=== PATIENT | female | born 1990 | race Caucasian/White ===

== ENCOUNTER 2024-07-05 15:31 | Emergency (ER) | payer OTHER, SELFPAY ==
--- NOTE | ~2024-07-05 | XR_ITS ---
HISTORY: fall COMPARISON: None TECHNIQUE: 2 views of the tibia and fibula were performed FINDINGS: No acute or subacute fracture. Joint spaces are preserved and alignment is maintained. Soft tissues are unremarkable without foreign body or significant calcification. Age-appropriate mineralization. IMPRESSION: No acute fracture or dislocation. Reviewed, dictated and finalized at location A.
--- NOTE | ~2024-07-05 | XR_ITS ---
HISTORY: fall COMPARISON: None TECHNIQUE: 4 views of the left knee were performed. FINDINGS: No acute or subacute fracture, erosion, lytic or sclerotic lesion. Medial tibiofemoral joint space narrowing is identified. No suprapatellar joint effusion is identified. The infrapatellar joint space is clear. IMPRESSION: Trace degenerative disease without acute fracture. Reviewed, dictated and finalized at location A.
--- NOTE | ~2024-07-05 | XR_ITS ---
HISTORY: fall COMPARISON: None TECHNIQUE: 3 views of the left hand were performed. FINDINGS: No acute fracture is identified. The joint spaces are preserved. The carpal arcs are intact. Mild radiocarpal joint space narrowing with sclerosis of the distal radius is present. Bone mineralization is age-appropriate. No significant soft tissue swelling. No radiopaque foreign body is identified. IMPRESSION: No acute fracture or dislocation within the left hand, as detailed above. Reviewed, dictated and finalized at location A.
[2024-07-05 15:34] VITALS: BP 205/113; PULSE 92; RESP 16; TEMP 36.8; O2SAT 100
--- NOTE | 2024-07-05 15:42 | PC.NURSE ---
Pt. reports history of htn. She states she has not been compliant with consistency taking BP medication in 3 years. She took 1 pill 2 days ago but ran out of medication and needs a refill. Denies CP or htn. Pt. educated on risks of uncontrolled htn.
--- NOTE | 2024-07-05 16:57 | ED.FALL ---
HPI - Fall General Chief Complaint: Fall <Barbie Montejo PA-C - Last Filed: 07/05/24 17:01> Stated Complaint: fall off ladder, L. pinky and L. knee pain <Barbie Montejo PA-C - Last Filed: 07/05/24 17:01> Time Seen by Provider: 07/05/24 17:28 <Barbie Montejo PA-C - Last Filed: 07/05/24 17:01> Focused HPI: 34-year-old female presents to emergency department for injuries after a fall that occurred prior to arrival. Patient states she was at work using a lift when the ladder got kicked off the lift the patient dropped about 5-6 feet to the ground. She landed on her legs and then fell forward onto her abdomen. She states she did not hit her head or lose consciousness. She is not anticoagulated. She is reporting pain and abrasions to the left knee, left tib-fib and left 5th digit to her hand. Reports Tdap is up-to-date. Denies other injuries acquired including neck pain, back pain, chest wall pain, abdominal pain. GENERAL: Well-appearing, well-nourished, and in no acute distress. HEAD: Normocephalic, atraumatic. CHEST: Clear to auscultation. No respiratory distress. No tenderness to chest wall ABD: Tenderness or ecchymosis to abdomen EXT: Ecchymosis to the medial aspect of the left proximal tibia, diffuse abrasions to the anterior tibia and the. Full active and passive range of motion of knee and ankle. No tenderness of extremity. No tenderness to right lower extremity with superficial abrasions to the right knee. DP pulses 2+ bilaterally. Sensation intact. LUE: Abrasion to suggest aspect of the left 5th digit with no nail involvement. Full active and passive range of motion of digits. No tenderness remainder of upper lower extremities. Radial pulse 2 +. Sensation intact. HEART: Regular rate and rhythm. NEURO: Alert and oriented x3. Patient screened in triage and initial orders placed. Additional care and disposition to be based upon diagnostic testing and treatment. <Barbie Montejo PA-C - Last Filed: 07/05/24 17:01> History of Present Illness HPI Narrative: Agree with HPI <Donovan Hernandez MD - Last Filed: 07/05/24 18:28> Related Data Allergies/Adverse Reactions: Allergies Allergy/AdvReac Type Severity Reaction Status Date / Time No Known Allergies Allergy Verified 07/05/24 15:33 <Barbie Montejo PA-C - Last Filed: 07/05/24 17:01> Review of Systems Review of Systems: All systems reviewed & are unremarkable except as noted in HPI and below <Donovan Hernandez MD - Last Filed: 07/05/24 18:28> Constitutional: Constitutional: Reports no additional constitutional complaints <Donovan Hernandez MD - Last Filed: 07/05/24 18:28> Cardiovascular: Cardiovascular: Reports no additional cardiovascular complaints <Donovan Hernandez MD - Last Filed: 07/05/24 18:28> Respiratory: Respiratory: Reports no additional respiratory complaints <Donovan Hernandez MD - Last Filed: 07/05/24 18:28> Musculoskeletal: Musculoskeletal: Reports no additional musculoskeletal complaints <Donovan Hernandez MD - Last Filed: 07/05/24 18:28> Neurologic: Reports system reviewed and no additional complaints, except as documented <Donovan Hernandez MD - Last Filed: 07/05/24 18:28> PMFSH Past Medical History Medical History: Medical History (Updated 07/05/24 @ 18:21 by Donovan Hernandez MD) Healthy female adult <Barbie Montejo PA-C - Last Filed: 07/05/24 17:01> Exam Narrative: GENERAL: Well-appearing, well-nourished, and in no acute distress. HEAD: Normocephalic, atraumatic. ENT: Mucous membranes moist. CHEST: Clear to auscultation. No respiratory distress. HEART: Regular rate and rhythm. Normal peripheral pulses. EXTREMITIES: Normal range of motion. No edema. Tender palpation left anterior knee medially over the joint line where there is bruising/swelling/abrasion. Additional abrasions over the shins bilaterally. Scattered bruising across bilateral lower extremities. SKIN: Warm, dry, no rash. NEURO: Alert and oriented x3. PSYCH: Normal mood and affect. <Donovan Hernandez MD - Last Filed: 07/05/24 18:28> Course Course Emergency Course: Patient resting comfortably. Has mild discomfort left ankle and knee but there are no fractures. Will give work note and anti-inflammatory/muscle relaxers for home. <Donovan Hernandez MD - Last Filed: 07/05/24 18:28> Vital Signs Vital signs: Vital Signs Temperature 98.2 F 07/05/24 15:34 Pulse Rate 92 07/05/24 15:34 Respiratory Rate 16 07/05/24 15:34 Blood Pressure 205/113 H 07/05/24 15:34 Pulse Oximetry 100 07/05/24 15:34 Oxygen Delivery Room Air 07/05/24 15:34 Temperature 98.2 F 07/05/24 15:34 Pulse Rate 71 07/05/24 18:13 Respiratory Rate 18 07/05/24 18:13 Blood Pressure 196/120 H 07/05/24 18:13 Pulse Oximetry 100 07/05/24 18:13 Oxygen Delivery Room Air 07/05/24 15:34 <Barbie Montejo PA-C - Last Filed: 07/05/24 17:01> Vital Signs Temperature 98.2 F 07/05/24 15:34 Pulse Rate 92 07/05/24 15:34 Respiratory Rate 16 07/05/24 15:34 Blood Pressure 205/113 H 07/05/24 15:34 Pulse Oximetry 100 07/05/24 15:34 Oxygen Delivery Room Air 07/05/24 15:34 Temperature 98.2 F 07/05/24 15:34 Pulse Rate 71 07/05/24 18:13 Respiratory Rate 18 07/05/24 18:13 Blood Pressure 196/120 H 07/05/24 18:13 Pulse Oximetry 100 07/05/24 18:13 Oxygen Delivery Room Air 07/05/24 15:34 <Donovan Hernandez MD - Last Filed: 07/05/24 18:28> MDM - Fall Imaging Data Radiologist's impression: ITS Impressions Tibia/Fibula X-Ray 07/05/24 17:14 IMPRESSION: No acute fracture or dislocation. Hand X-Ray 07/05/24 17:15 IMPRESSION: No acute fracture or dislocation within the left hand, as detailed above. Knee X-Ray 07/05/24 17:16 IMPRESSION: Trace degenerative disease without acute fracture. <Donovan Hernandez MD - Last Filed: 07/05/24 18:28> Discharge Plan Discharge Clinical Impression: Left ankle sprain, Contusion of left knee, Abrasion, multiple sites <Barbie Montejo PA-C - Last Filed: 07/05/24 17:01> Patient Disposition: Home <Barbie Montejo PA-C - Last Filed: 07/05/24 17:01> Condition: Stable <YANCY Martinez Last Filed: 07/05/24 17:01> Instructions: Ankle Sprain (ED), Contusion in Adults (ED), P.R.I.C.E. Treatment (ED) <Barbie Montejo PA-C - Last Filed: 07/05/24 17:01> Additional Instructions: Return ER if you suffered no injury, have chest pain shortness of breath, you lose consciousness, or you have additional concerns. <Barbie Montejo PA-C - Last Filed: 07/05/24 17:01> Patient Language: Georgian <Barbie Montejo PA-C - Last Filed: 07/05/24 17:01> Follow-up/Referrals: PHYSICIAN,TECHNICAL SYSTEMS ARCHITECT [Primary Care Provider] - Levi Moura MD [Physician] - 1 Week <Barbie Montejo PA-C - Last Filed: 07/05/24 17:01>
--- OUTSIDE RECORDS SUMMARY | 2024-07-05 17:44 | XMS_ITS | Clinical Summary ---
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 30 Tablet 4 Active Additional Information Patient not taking.Reported on 02/07/2024 naloxone HCl (Narcan) 4 MG/0.1ML Liquid 1 [place] by Nasal route as needed for Opioid Reversal (opioid overdose). administer for symptoms of overdose (severe sleepiness, breathing problems, not responsive). Call 911. May use additional dose to repeat 1 spray intranasally in 2-3 minutes if needed. 2 Each 4 Active ibuprofen (MOTRIN) 600 MG TabletIndicati ons:Pain Take 1 Tablet by mouth every 6 hours as needed for Moderate or more severe pain. Indications: Pain 30 Tablet 4 Active doxycycline hyclate (VIBRAMYCIN) 100 MG Capsule Take 1 Capsule by mouth 2 times daily for 7 days. 14 Capsule 5 06/10/19 25 metroNIDAZOLE (Flagyl) 500 MG Tablet Take 1 Tablet by mouth 2 times daily for 7 days. 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 ADHD 05/30/2022 Anxiety 05/30/2022 Encounters Date Type Department Care Team Description 06/07/2024 Telephone [facility] Emergency [address] [place] [address] Irina Alvarado, NUCLEAR MEDICINE TECHNICIAN Follow-up (Test results) 06/05/2024 Telephone [facility] Emergency [address] [place] [address] Irina Alvarado, NUCLEAR MEDICINE TECHNICIAN Follow-up (Test results) 06/04/2024 Telephone [facility] Emergency [address] [place] [address] Irina Alvarado, NUCLEAR MEDICINE TECHNICIAN Follow-up (Test results) 06/03/2024 Telephone [facility] Emergency [address] [place] [address] Kaylie Samano APRN, FIBER DRIER OPERATOR ED Follow-up (New prescription) 06/02/2024 3:08 AM CDT - 06/02/2024 4:28 AM CDT Emergency [facility] Emergency [address] [place] [address] Justine Gutierrez MD Dysuria Discharge Disposition: Discharged to home or Selfcare 06/02/2024 Travel from Last 3 Months Immunizations Immunization Administration Dates Next Due TDAP Vaccine 02/07/2024 Family History Medical History Relation Name Comments ADD / ADHD Mother Multiple Sclerosis Mother Relation Name Status Comments Father Alive Mother Alive Social History Tobacco Use Types Packs/Day Years Used Date Smoking Tobacco: Never Smokeless Tobacco: Never Tobacco Cessation:Counseling Given: Not Answered Alcohol Use Standard Drinks/Week Comments Yes 2 (1 standard drink = 0.6 oz pur e alcohol) Education Answer Date Recorded What is the highest level of school you have completed or the highest degree you have received? 12th grade 05/29/2022 Sexually Active Control Partners Comments Not Currently Comments No Sex and Gender Information Value Date Recorded Sex Assigned at Not on file Legal Sex Female 10:30 PM CDT Gender Identity Not on file Sexual Orientation Not on file Last Filed Vital Signs Vital Sign Reading Time Taken Comments Blood Pressure 157/92 06/02/2024 4:15 AM CDT Pulse 91 06/02/2024 3:57 AM CDT Temperature 37.3 C (99.1 F) 06/02/2024 3:07 AM CDT Respiratory Rate 18 06/02/2024 3:07 AM CDT Oxygen Saturation 100% 06/02/2024 3:57 AM CDT Inhaled Oxygen Concentration - - Weight 77.1 kg (170 lb) 06/02/2024 3:07 AM CDT Height 157.5 cm (5' 2 ) 06/02/2024 3:07 AM CDT Body Mass Index 31.09 06/02/2024 3:07 AM CDT Plan of Treatment Health Maintenance Due Date Last Done Comments Hepatitis C Virus (HCV) Screening 1991 Hepatitis B Immunization (1 of 3 - 19+ 3-dose series) 05/10/2010 HPV/Cotest 05/10/2021 Cervical Cancer Screening (CCS) 04/10/2022 Pap Smear 04/10/2022 04/10/2019 SARS-COV-2 Immunization ( season) 2023 Influenza Immunization (Seas on Ended) 2024 03/05/2014 Td Immunization Every 10 Yea rs (Adults With 1 Tdap) 02/06/2034 02/07/2024 Respiratory Syncytial Virus (RSV) Immunization (Adult) (1 - 1-dose 75+ series) 05/10/2066 DTaP/Tdap/Td Immunization Discontinued 02/07/2024 TdaP Immunization Discontinued 02/07/2024 Meningococcal Immunization (ACWY) Aged Out No longer eligible based on patient's age to complete this topic Pneumococcal Immunization Combined Aged Out No longer eligible b ased on patient's age to complete this topic Rotavirus Immunization Aged Out No lo nger eligible based on patient's age to complete this topic Procedures Procedure Name Priority Date/Time Associated Diagnosis Comments VAGINITIS SCREEN, MOLECULAR STAT 06/02/2024 3:50 AM CDT CHLAMYDIA & GC DNA PROBE STAT 06/02/2024 3:23 AM CDT URINALYSIS REFLEX IF INDICATED BY ABNORMAL RESULTS STAT 06/02/2024 3:23 AM CDT CULTURE, URINE STAT 06/02/2024 3:23 AM CDT CHLAMYDIA & GC DNA PROBE > 12 STAT 06/02/2024 3:23 AM CDT from Last 3 Months Results * (ABNORMAL) Molecular, Vaginitis Screen (06/02/2024 3:50 AM CDT) TRICHOMONAS NOT DETECTED NOT DETECTED 06/03/2024 12:00 AM CDT [facility] BACTERIAL VAGINOSIS DETECTED(A) NOT DETECTED 06/03/2024 12:00 AM CDT [facility] ANGY NOT DETECTED NOT DETECTED 06/03/2024 12:00 AM CDT [facility] Comment: Angy group Not detected with the following possible Angy species: Angy albicans and/or Angy tropicalis and/or Angy parapsilosis and/or Angy dubliniensis ANGY GLABRATA NOT DETECTED NOT DETECTED 06/03/2024 12:00 AM CDT [facility] ANGY KRUSEI NOT DETECTED NOT DETECTED 06/03/2024 12:00 AM CDT [facility] Other VAGINAL STRUCTURE / Unknown Non-Phlebotomy Collection / Unknown 06/02/2024 3:50 AM CDT 06/02/2024 3:58 AM CDT us Justine Gutierrez MD MICROBIOLOGY - GENERAL ORDERABLE S Final Result Performing Organization Address City/State[facility] Co de Phone Number [facility] [address] [place] [address], * (ABNORMAL) CHLAMYDIA & GC DNA PROBE > 12 (06/02/2024 3:23 AM CDT) CHLAMYDIA DNA NEGATIVE NEGATIVE 06/02/2024 7:31 PM CDT [facility] Comment: Presumed negative for C. trachomatis. A negative result does not preclude C. trachomatis infection because results are dependent on adequate specimen collection, absence of inhibitors, and sufficient DNA to be detected. This test was performed using RADHA 5800 Real Time PCR. GC DNA POSITIVE(A) NEGATIVE 06/02/2024 7:31 PM CDT [facility] Comment: Positive for N. gonorrhoeae. Organism viability and/or infectivity cannot be inferred since target DNA may persist in the absence of viable organisms. This test was performed using RADHA 5800 Real Time PCR. Reported to the Department of Public Health. Other URINE / Unknown Non-Phlebotomy Collection / Unknown 06/02/2024 3:23 AM CDT 06/02/2024 3:35 AM CDT us Justine Gutierrez MD MICROBIOLOGY - GENERAL ORDERABLE S Final Result [facility] [address] [facility] [place] [address], * (ABNORMAL) Urinalysis w/ Reflex (06/02/2024 3:23 AM CDT) SPECIFIC GRAVITY 1.010 1.003 - 1.030 06/02/2024 4:17 AM CDT [facility] URINE PH 7.0 5.0 - 9.0 06/02/2024 4:17 AM CDT [facility] WBC ESTERASE 500 /uL(A) Negative 06/02/2024 4:17 AM CDT [facility] NITRITE Negative Negative 06/02/2024 4:17 AM CDT [facility] PROTEIN, RANDOM URINE 30 mg/dL(A) Negative 06/02/2024 4:17 AM CDT [facility] URINE GLUCOSE, QUAL Negative Negative 06/02/2024 4:17 AM CDT [facility] URINE KETONES Negative Negative 06/02/2024 4:17 AM CDT [facility] UROBILINOGEN Normal Normal mg/dL 06/02/2024 4:17 AM CDT [facility] URINE BLOOD 10 /uL(A) Negative makayla/ul 06/02/2024 4:17 AM CDT [facility] URINALYSIS COLOR Yellow 06/03/19 4:17 AM CDT [facility] URINALYSIS CLARITY Slightly Cloudy 06/02/2024 4:17 AM CDT [facility] WBC (Urine) 51-150(A) Negative, 0-5 /hpf 06/02/2024 4:17 AM CDT [facility] URINE RBC'S 3-5(A) Negative, 0-2 /hpf 06/02/2024 4:17 AM CDT [facility] EPITHELIAL CELLS Moderate amount /lpf 06/02/2024 4:17 AM CDT [facility] BACTERIA, URINE Few(A) Negative /hpf 06/02/2024 4:17 AM CDT [facility] Urine URINE SPECIMEN / Unknown Non-Phlebotomy Collection / Unknown 06/02/2024 3:23 AM CDT 06/02/2024 3:35 AM CDT us Justine Gutierrez MD URINE ORDERABLES Final Result [facility] [address] [place] [address] * Culture, Urine (06/02/2024 3:23 AM CDT) CULTURE RESULTS MIXED GROWTH OF ONE OR MORE DISTAL URETHRAL CONTAMINANTS 06/03/2024 10:21 AM CDT [facility] Urine URINE SPECIMEN / Unknown Non-Phlebotomy Collection / Unknown 06/02/2024 3:23 AM CDT 06/02/2024 3:35 AM CDT us Justine Gutierrez MD MICROBIOLOGY - GENERAL ORDERABLE S Final Result Performing Organization Address City/[facility]/ZIP Co de Phone Number [facility] [address] [place] [address], [place] from Last 3 Months Insurance MEDICAID CAPPS Care Teams Roofing Laborer Relationship Specialty Start Date End Date Provider, None [place] PCP - General 07/06/22
--- OUTSIDE RECORDS SUMMARY | 2024-07-05 17:45 | XMS_ITS | Clinical Summary ---
Author Organization [address] Address [address] [place] [address] Care Team Providers Care Water Resources Engineer Name Role Phone Sofia Salazar CASH MANAGER Unavailable [phone] Jer Lees MD Primary Care Provider [phone] Allergies No known active allergies Medications levothyroxine (SYNTHROID) 150 mcg tablet TK 1 T PO QD PRN 0 Active cloNIDine (CATAPRES) 0.2 mg tablet TK 1 T PO TID 0 Active dextroamphetami ne-amphetamine (ADDERALL) 20 mg tablet 0 0 Active methadone HCl (METHADONE ORAL) Take 84 mg by mouth daily Active levothyroxine (SYNTHROID) 150 mcg tablet Take 150 mcg by mouth director of global marketing before breakfast Active cloNIDine (CATAPRES) 0.1 mg tablet Take 0.1 mg by mouth 2 (two) times a day Active norethindrone-e thin estradioL (NECON) 0.5-35 mg-mcg per tablet Take 1 tablet by mouth daily Active Active Problems No known active problems Immunizations Immunization Administration Dates Next Due Influenza, Quadrivalent, Spl it, Preservative Free, Intramuscular 03/05/2014 Surgical History Surgery Date Site/Laterality Comments CLOSED REDUCTION ELBOW DISLOCATION SECTION Medical History Medical History Date Comments Hypothyroid Social History Tobacco Use Types Packs/Day Years Used Date Smoking Tobacco: Never Smokeless Tobacco: Never Comments Unknown Sex and Gender Information Value Date Recorded Sex Assigned at Not on file Legal Sex Female 8:07 PM CRITICAL CARE UNIT NURSE Gender Identity Not on file Sexual Orientation Not on file Obstetrics History Last Filed Vital Signs Vital Sign Reading Time Taken Comments Blood Pressure 166/84 12/05/2020 11:59 AM CDT Pulse 126 12/05/2020 11:59 AM CDT Temperature 37.6 C (99.7 F) 12/05/2020 11:59 AM CDT Respiratory Rate 20 12/05/2020 11:59 AM CDT Oxygen Saturation 97% 12/05/2020 11:59 AM CDT Inhaled Oxygen Concentration - - Weight 90.7 kg (200 lb) 12/05/2020 11:59 AM CDT Height 157.5 cm (5' 2 ) 12/05/2020 11:59 AM CDT Body Mass Index 36.58 12/05/2020 11:59 AM CDT Plan of Treatment Not on file Insurance Care Teams Water Resources Engineer Relationship Specialty Start Date End Date Jer Lees MD PCP - General Internal Medicine 05/25/22 Sofia Salazar NP Family Medicine 12/05/20
--- OUTSIDE RECORDS SUMMARY | 2024-07-05 17:45 | XMS_ITS | Data Portability ---
Author Organization [facility] Address [address] [place] [address] Care Team Providers Care Pencil Sorter Name Role Phone SATISHCRISTINO Primary Care Provider [phone] Assessment No assessment recorded. Plan of Treatment Reminders Order Date Submit Date Provider Last Modified By Organization Details Last Modified Time Details Appointments None recorded. Lab drug screen, urine 2020 [facility], [address] [place] [address], [address], [place], [address], 1 11:07:35 Referral None recorded. Procedures None recorded. Surgeries None recorded. Imaging None recorded. Medication Orders dextroamph etamine-am phetamine 20 mg tablet 2020 021 INTERFACE [facility], [address] [place], [address], 1 15:38:00 clonidine HCl 0.2 mg tablet 2019 020 [id number], [address], [place], [id number], 0 16:28:20 atenolol 50 mg tablet 2019 020 [facility]FACE [id number], [address], [place], [id number], 0 16:28:20 levothyrox ine 150 mcg tablet 2019 020 [facility], [address], [place], [id number], 0 16:28:23 dextroamph etamine-am phetamine 20 mg tablet 2019 020 INTERFACE [facility] #23015, [address], [place], [id number], 0 16:28:22 Patient TargetsNo targets recorded. Patient Instructions Encounter Date Encounter Id Patient Instructions Last Modified By Organization Details Last Modified Time 08/19/2019 [id number] attention defici t hyperactivity disorder (ADHD) in adults: care instructions jnanney Not available 08/19/2019 16:28:13 fu in 2 weeks jnanney Not available 16:29:17 09/02/2019 [id number] cont current meds..follow up if assumed lymphadenopathy on rt neck does not cont to reduce. jnanney Not available 09/02/2019 12:47:43 Reason for Referral None Reported. Results Created Date Observation Date Name Description Value Unit Range Abnormal Flag Note LastModifiedBy Organization Detail LastModifiedTime 02/22/1902/28/2020 drug scree n, urine summary report (summary) FINAL ===== ===== ===== ===== ===== ===== ===== ===== ===== ===== ===== ===== ===== === TOXAS SURE COMP DRUG JENNY SIS,U R ===== ===== ===== ===== ===== ===== ===== ===== ===== ===== ===== ===== ===== === Test Resul t Flag Units Drug Prese nt and Decla red for Presc ripti on Verif icati on Amphe tamin e >7463 EXPEC AMBER ng/mg creat Amphe tamin e is avail able as a sched ule II presc ripti on drug. Cloni dine PRESE NT EXPEC AMBER Drug Prese nt not Decla red for Presc ripti on Verif icati on Metha done 7225 UNEXP ECTED ng/mg creat EDDP (Meth adone Mtb) >7463 UNEXP ECTED ng/mg creat Sourc es of metha done inclu de sched uled presc ripti on medic ation s. EDDP is an expec amber metab olite of metha done. Ibupr ofen PRESE NT UNEXP ECTED Drug Absen t but Decla red for Presc ripti on Verif icati on Ateno lol Not Detec amber UNEXP ECTED ===== ===== ===== ===== ===== ===== ===== ===== ===== ===== ===== ===== ===== === Test Resul t Flag Units Ref Range Creat inine 134 mg/dL >=20 ===== ===== ===== ===== ===== ===== ===== ===== ===== ===== ===== ===== ===== === Decla red Medic ation s: The august ing and inter preta tion on this repor t are based on the follo wing decla red medic ation s. Unexp ected resul ts may arise from inacc uraci es in the decla red medic ation s. Not e: The testi ng scope of this panel inclu ange these medic ation s: Amphe tamin e Amphe tamin e (Dext roamp hetam ine) Ateno lol Cloni dine Not e: The testi ng scope of this panel does not inclu de follo wing repor amber medic ation s: Fluco nazol e Levot hyrox ine Noret hindr one Sulfa metho xazol e-tri metho prim ===== ===== ===== ===== ===== ===== ===== ===== ===== ===== ===== ===== ===== === For clini marcell consu ltati on, saumya e call . ===== ===== ===== ===== ===== ===== ===== ===== ===== ===== ===== ===== ===== === Not Available [employer] [address], [place], [address], 02/28/2020 11:07:35 02/22/19 21 02/28/2020 drug scree n, urine pdf . Not Available [employer] [address], [place], [address], 02/28/2020 11:07:35 Result Notes None recorded. Problems Name Problem SNOMED Code Status Onset Date Resolution Date Notes Provider Name and Address Organization Details Recorded Time Hypertensive disorder 73296220 Active 2019 Karen Santos MA null, [place] - [place] 0 16:13:47 Problem Notes None recorded. Medical Equipment None Reported. Allergies No known drug allergies Medications Name Sig Start Date Stop Date Status Note LastModified by Organization Details LastModified Time amoxicillin 500 mg capsule Take 1 capsule 3 times a day by oral route for 10 days. 02/22 completed Not Available Not Available Not Available fluconazole 150 mg tablet TAKE 1 TABLET BY MOUTH FOR ONE DOSE. MAY REPEAT IN 3 DAYS IF NEEDED active Not Available Not Available No t Available hydrocodone 5 mg-acetamino phen 325 mg tablet 09/01 completed Not Available Not Available Not Available sulfamethoxa zole 800 mg-trimethop rim 160 mg tablet active Not Available Not Available Not Available clonidine HCl 0.2 mg tablet TAKE 1 TABLET BY MOUTH EVERY NIGHT AT BEDTIME 2020 active Not Available Not Available Not Avai lable ferrous sulfate 325 mg (65 mg iron) tablet 08/18 completed Not Available Not Available Not Available dextroamphet amine-amphet amine 20 mg tablet TAKE 1 TABLET BY MOUTH THREE TIMES DAILY active Not Available Not Available No t Available levothyroxin e 150 mcg tablet TAKE 1 TABLET BY MOUTH EVERY DAY 2020 active Not Available Not Available Not Avai lable norethindron e (contracepti ve) 0.35 mg tablet TAKE 1 TABLET BY MOUTH DAILY active Not Available Not Available No t Available atenolol 50 mg tablet TAKE 1 TABLET BY MOUTH EVERY DAY 2020 active Not Available Not Available Not Avai lable nitrofuranto in monohydrate/ macrocrystal s 100 mg capsule TAKE 1 CAPSULE BY MOUTH TWICE DAILY active Not Available Not Available No t Available methadone active Not Available Not Rose ilable Not Available Estarylla 0.25 mg-0.035 mg tablet 08/18 completed Not Available Not Available Not Available Vitals Date Recorded Body weight Body temperature Oxygen saturation Oxygen saturation in Arterial blood by Pulse oximetry Heart rate Systolic blood pressure Diastolic blood pressure Provider Name and Address Organization Details Last Updated DateTime 0 [address]7701.5 8 g 97.8 [degF] 100 % 100 % 94 /min 186 mm[Hg] 110 mm[Hg] Karen Santos MA [facility] 0 16:10:13 Date Recorded Body weight Body height Body mass index (BMI) Body temperature Oxygen saturation Oxygen saturation in Arterial blood by Pulse oximetry Provider Name and Address Organization Details Last Updated DateTime 0 30202.5 8 g 157.48 cm 38.8 kg/m2 98.6 [degF] 98 % 98 % Latoya Solis MA [facility] 0 12:11:37 Date Recorded Heart rate Systolic blood pressure Diastolic blood pressure Provider Name and Address Organization Details Last Updated DateTime 09/02/2019 72 /min 132 mm[Hg] 84 mm[Hg] Cristino Matute PA-C Attn: Accounting,[address] [place], [address], [facility] 09/02/2019 12:43:39 Social History Question Answer Notes LastModified by Organizat ion Details LastModified Time Tobacco Smoking Status Former Smoker Karen Santos MA null, [facility] 08/19/2019 16:14:00 What Is Your Level Of Caffeine Consumption? Occasional Information not available 08/19/2019 How Much Tobacco Do You Chew? None Information not available 08/19/2019 What Type Of Diet Are You Following? REGULAR Information not available 08/19/2019 Which Illicit Or Recreational Drugs Have You Used? None Clean 4 Yrs Information not available 08/19/2019 Education 12 Information no t available 08/19/2019 Are There Any Guns Present In Your Home? No Information not available 08/19/2019 Live Alone Or With Others? With Others Information not available 08/19/2019 What Was The Date Of Your Most Recent Tobacco Screening? 02/29/2020 Information not available 02/29/2020 How Many Children Do You Have? 3 Information not available 08/19/2019 At What Age Did You Start Smoking Tobacco? 19 Information not available 08/19/2019 How Much Tobacco Do You Smoke? No Information not available 08/19/2019 General Stress Level Low Information not available 02/29/2020 On What Date Was Tobacco Cessation Counseling Provided? 02/29/2020 Information not available 02/29/2020 Sex: Unknown Functional Status Question Answer Note LastModified by Organizat ion Details LastModified Time What is your level of alcohol consumption? None Information not available 08/19/2019 Do you or have you ever used smokeless tobacco? Never used smokeless tobacco Information not available 08/19/2019 Are you currently employed? Yes Information not available 08/19/2019 Are you able to care for yourself? Yes Information not available 08/19/2019 What is your occupation? [employer] Information not available 08/19/2019 Do you or have you ever used e-cigarettes or vape? Never used electronic cigarettes Information not available 08/19/2019 Mental Status None recorded. Family History Nothing Reported. Medical History No medical history recorded. 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 If SBP gets above 200 - go to the ER. [id number] Shaun Perera MD [facility] [address] [place] [address] 02/23/2020 13:56:29 02/23/2020 16:19:55 Long-term drug therapy 050525486 Z79.426 [id number] Shaun Perera MD [facility] [address] [place] [address] 02/29/2020 11:45:53 03/01/2020 02:07:42 Hypertensive disorder 91868181 I10 Continue medication s prescribed and closely montor BP. If SBP gets above 200 - go to the ER. Attention deficit hyperactivity disorder, predominantly inattentive type 23514790 F90.0 Health Concerns Section Related Observation LastModified by Organization Detai ls LastModified Time None Recorded Concern Status LastModified by Organization Details LastModified Time None Recorded Advance Directives Directive None Recorded Payers Encounter Date Sequence Insurance Name Policy Number Policy Andrews Covered Member ID Andrews Member ID Guarantor Name 08/19/2019 1 [facility] (MEDICAID HMO) [id number] [facility] [id number] Donovan Moscoso 09/02/2019 1 [employer] [place] ([place] [id number] [facility] [id number] Donovan Moscoso 02/23/2020 1 [facility] (MEDICAID HMO) [id number] 0003 [facility] [id number] Donovan Moscoso 02/29/2020 1 [facility] (MEDICAID HMO) [id number] 0003 Saima Cartagena [id number] Donovan Moscoso Notes Date Note Type Note Provider Name and Address Organization Details Recorded Time 08/19/2019 text/html has a new methadone dr that wont fill her other meds..mendez was DOC..blood pressure issues since she had her son..has a thyroid problem as well Cristino Matute PA-C Attn: Accounting[address] [facility], [place], [address], [facility] 08/19/2019 16:29:25 09/02/2019 text/html She states that she is here for a f/u on her BP. Has been taking her meds daily. BPs at home this morning was 136/84. She also mentions that she was seen at [facility] ER in [place], [place] on August 21 for a dental infection which progressed to a throat infection. She was placed on Amoxicillin 500mg TID for 10 days which she has finished. No longer has pain in the area. Does report some mild throat irritation/swellin g but is intermittent and does not impede her breathing. Has an dental appointment in 1.5 weeks for tooth extraction. Cristino Matute PA-C Attn: Accounting[address] [facility], [place], [address], [facility] 09/02/2019 12:48:05 02/29/2020 text/html is weaning down from her methadone thru the methadone clinic..drug screen is appropriate... Cristino Matute PA-C Attn: Accounting[address] [facility], [place], [address], [facility] 02/29/2020 15:46:04 OBGyn Episode No OBEpisode recorded.
--- OUTSIDE RECORDS SUMMARY | 2024-07-05 17:45 | XMS_ITS | Referral Summary ---
Author Organization [address] Address [address] [place] [address] Care Team Providers Care Mobility Architect Manager Name Role Phone Sofia Salazar CORE SHAPER Unavailable [phone] Jer Lees MD Primary Care Provider [phone] Allergies No known active allergies Medications levothyroxine (SYNTHROID) 150 mcg tablet TK 1 T PO QD PRN 0 Active cloNIDine (CATAPRES) 0.2 mg tablet TK 1 T PO TID 0 Active dextroamphetami ne-amphetamine (ADDERALL) 20 mg tablet 0 0 Active methadone HCl (METHADONE ORAL) Take 84 mg by mouth daily Active levothyroxine (SYNTHROID) 150 mcg tablet Take 150 mcg by mouth metal sash setter before breakfast Active cloNIDine (CATAPRES) 0.1 mg tablet Take 0.1 mg by mouth 2 (two) times a day Active norethindrone-e thin estradioL (NECON) 0.5-35 mg-mcg per tablet Take 1 tablet by mouth daily Active Active Problems No known active problems Immunizations Immunization Administration Dates Next Due Influenza, Quadrivalent, Spl it, Preservative Free, Intramuscular 03/05/2014 Social History Tobacco Use Types Packs/Day Years Used Date Smoking Tobacco: Never Smokeless Tobacco: Never Comments Unknown Sex and Gender Information Value Date Recorded Sex Assigned at Not on file Legal Sex Female 8:07 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
[2024-07-05 18:13] VITALS: BP 196/120; PULSE 71; RESP 18; O2SAT 100
[2024-07-05] MEDS: HYDROcodone/acetaminophen (*CRX) 5-325 MG TABLET 1 TAB PO (18:28)
== END 2024-07-05 18:35 | disposition home or self-care (01) ==
PROVIDERS: Emergency Provider Emergency Medicine
DX: S93.402A Sprain of unspecified ligament of left ankle, initial encounter (principal); S80.02XA Contusion of left knee, initial encounter; S80.212A Abrasion, left knee, initial encounter; W11.XXXA Fall on and from ladder, initial encounter
CPT/HCPCS: 73130; 73564; 73590; 99284; A9270

== ENCOUNTER 2024-07-16 14:08 | Emergency (ER) | payer OTHER, SELFPAY ==
--- OUTSIDE RECORDS SUMMARY | 2024-07-16 14:10 | XMS_ITS | Clinical Summary ---
Author Organization [facility] Address [address] [place] [address] Phone Care Team Providers Care Computer Aided Design Drafter Name Role Phone Provider, None Primary Care Provider Unavailabl e Allergies No known active allergies Medications losartan potassium-hydro chlorothiazide (HYZAAR) 100-25 MG Tablet Take 1 Tablet by mouth daily. 30 Tablet 4 Active Additional Information Patient not taking.Reported on 02/07/2024 naloxone HCl (Narcan) 4 MG/0.1ML Liquid 1 [place] by Nasal route as needed for Opioid Reversal (opioid overdose). administer for symptoms of overdose (severe sleepiness, breathing problems, not responsive). Call 911. May use additional dose to repeat 1 spray intranasally in 2-3 minutes if needed. 2 Each 4 Active ibuprofen (MOTRIN) 600 MG TabletIndicatio ns:Pain Take 1 Tablet by mouth every 6 hours as needed for Moderate or more severe pain. 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 ADHD 05/30/2022 Anxiety 05/30/2022 Encounters Date Type Department Care Team Description 06/07/2024 Telephone [facility] [address] [place] [address] Irina Alvarado FLOOR GRINDER Follow-up (Test results) 06/05/2024 Telephone [facility] [address] [place] [address] Irina Alvarado, FLOOR GRINDER Follow-up (Test results) 06/04/2024 Telephone [facility] [address] [place] [address] Irina Alvarado, FLOOR GRINDER Follow-up (Test results) 06/03/2024 Telephone [facility] [address] [place] [address] Kaylie Samano APRN, CARDIOVASCULAR TECH ED Follow-up (New prescription) 06/02/2024 3:08 AM CDT - 06/02/2024 4:28 AM CDT Emergency [facility] Emergency [address] [place] [address] Justine Gutierrez MD Dysuria Discharge Disposition: Discharged [...] 3:07 AM CDT Height 157.5 cm (5' 2) 06/02/2024 3:07 AM CDT Body Mass Index [...] Immunization Discontinued 02/07/2024 TdaP Immunization Discontinued 02/07/2024 Human Papillomavirus (HPV) Immunization Aged Out No longer eligible b ased on patient's age to complete this topic Meningococcal Immunization (ACWY) Aged Out No longer eligible based on patient's age to complete this topic Pneumococcal Immunization Combined Aged Out No longer eligible based on [...] Molecular, Vaginitis Screen (06/02/2024 3:50 AM CDT) Pathologist [facility] TRICHOMONAS NOT DETECTED NOT DETECTED 06/03/2024 12:00 AM CDT [facility] BACTERIAL VAGINOSIS DETECTED(A) NOT DETECTED 06/03/2024 12:00 AM CDT [facility] ANGY NOT DETECTED NOT DETECTED 06/03/2024 12:00 AM CDT [facility] Comment: Angy group Not detected with the following possible Angy species: Angy albicans and/or Angy tropicalis and/or Angy parapsilosis and/or Angy dubliniensis ANGY GLABRATA NOT DETECTED NOT DETECTED 06/03/2024 12:00 AM CDT [facility] ANGY KRUSEI NOT DETECTED NOT DETECTED 06/03/2024 12:00 AM CDT [facility] Other VAGINAL STRUCTURE / Unknown Non-Phlebotomy Collection / Unknown 06/02/2024 3:50 AM CDT 06/02/2024 3:58 AM CDT us Justine Gutierrez MD MICROBIOLOGY - GENERAL ORDERABLE S Final Result Performing Organization Address City/State/[facility] Co de Phone Number [facility] [address] [place] [address], * (ABNORMAL) CHLAMYDIA & GC DNA PROBE > 12 (06/02/2024 3:23 AM CDT) [facility] CHLAMYDIA DNA NEGATIVE NEGATIVE 06/02/2024 7:31 PM CDT [facility] Comment: Presumed negative for C. trachomatis. A negative result does not preclude C. trachomatis infection because results are dependent on adequate specimen collection, absence of inhibitors, and sufficient DNA to be detected. This test was performed using RADHA 5800 Real Time PCR. GC DNA POSITIVE(A) NEGATIVE 06/02/2024 7:31 PM CDT [facility] Comment: Positive for N. gonorrhoeae. Organism [...] MICROBIOLOGY - GENERAL ORDERABLE S Final Result [facility] [address] [facility] [place] [id number], [place] * (ABNORMAL) Urinalysis w/ Reflex (06/02/2024 3:23 AM CDT) SPECIFIC GRAVITY 1.010 1.003 - 1.030 06/02/2024 4:17 AM CDT [facility] URINE PH 7.0 5.0 - 9.0 06/02/2024 4:17 AM CDT [facility] WBC ESTERASE 500 /uL(A) Negative 06/02/2024 4:17 AM CDT [facility] NITRITE Negative Negative 06/02/2024 4:17 AM CDT [facility] PROTEIN, RANDOM URINE 30 mg/dL(A) Negative 06/02/2024 4:17 AM CDT [facility] URINE GLUCOSE, QUAL Negative Negative 06/02/2024 4:17 AM CDT [facility] URINE KETONES Negative Negative 06/02/2024 4:17 AM CDT [facility] UROBILINOGEN Normal Normal mg/dL 06/02/2024 4:17 AM CDT [facility] URINE BLOOD 10 /uL(A) Negative makayla/ul 06/02/2024 4:17 AM CDT [facility] URINALYSIS COLOR Yellow 06/03/19 4:17 AM CDT [facility] URINALYSIS CLARITY Slightly Cloudy 06/02/2024 4:17 AM CDT [facility] WBC (Urine) 51-150(A) Negative, 0-5 /hpf 06/02/2024 4:17 AM CDT [facility] URINE RBC'S 3-5(A) Negative, 0-2 /hpf 06/02/2024 4:17 AM CDT [facility] EPITHELIAL CELLS Moderate amount /lpf 06/02/2024 4:17 AM CDT [facility] BACTERIA, URINE Few(A) Negative /hpf 06/02/2024 4:17 AM CDT [facility] Urine URINE SPECIMEN / Unknown Non-Phlebotomy Collection / Unknown 06/02/2024 3:23 AM CDT 06/02/2024 3:35 AM CDT us Justine Gutierrez MD URINE ORDERABLES Final Result Performing Organization Address City/[facility]/ZIP Co de Phone Number [facility] [address] [place] [address] * Culture, Urine (06/02/2024 3:23 AM CDT) CULTURE RESULTS MIXED GROWTH OF ONE OR MORE DISTAL URETHRAL CONTAMINANTS 06/03/2024 10:21 AM CDT [facility] URINE SPEC[facility] / Unknown Non-Phlebotomy Collection / Unknown 06/02/2024 3:23 AM CDT 06/02/2024 3:35 AM CDT Justine Gutierrez MD MICROBIOLOGY - GENERAL ORDERABLE S Final Result Performing Organization Address City/[facility]/ZIP Co de Phone Number [facility] [address] [place] [address], [place] from Last 3 Months Insurance MEDICAID CAPPS Care Teams Computer Aided Design Drafter Relationship Specialty Start Date End Date Provider, None [place] PCP - General 07/06/22
--- NOTE | 2024-07-16 19:50 | PC.NURSE ---
pt called at 1950 for vital signs. pt did not answer.
--- OUTSIDE RECORDS SUMMARY | 2024-07-16 21:53 | XMS_ITS | Clinical Summary ---
Author Organization [facility] Address [address] [place] [address] Phone Care Team Providers Care Learning Technologies Specialist Name Role Phone Provider, None Primary Care Provider Unavailabl e Allergies No known active allergies Medications losartan potassium-hydro chlorothiazide (HYZAAR) 100-25 MG Tablet Take 1 Tablet by mouth daily. 30 Tablet 4 Active Additional Information Patient not taking.Reported on 02/07/2024 naloxone HCl (Narcan) 4 MG/0.1ML Liquid 1 [place] by Nasal route as needed for Opioid [...] Type Department Care Team Description 06/07/2024 [facility]phone [facility] [address] [place] [address] Irina Alvarado WOOD BOATBUILDER APPRENTICE Follow-up (Test results) 06/05/2024 [facility]phone [facility] Emergency [address] [place] [address] Irina Alvarado, WOOD BOATBUILDER APPRENTICE Follow-up (Test results) 06/04/2024 Telephone [facility] Emergency [address] [place] [address] Irina Alvarado, WOOD BOATBUILDER APPRENTICE Follow-up (Test results) 06/03/2024 Telephone [facility] Emergency [address] [place] [address] Kaylie Samano APRN, FOUR CORNER FORMER MACHINE OPERATOR ED Follow-up (New prescription) 06/02/2024 3:08 AM CDT - 06/02/2024 4:28 AM CDT Emergency [facility] Emergency [address] [place] [address] Justine Gutierrez MD Dysuria Discharge Disposition: Discharged [...] Vaginitis Screen (06/02/2024 3:50 AM CDT) Pathologist [facility] TRICHOMONAS NOT DETECTED NOT DETECTED 06/03/2024 12:00 AM CDT [facility] BACTERIAL VAGINOSIS DETECTED(A) NOT DETECTED 06/03/2024 12:00 AM CDT [facility] ANGY NOT DETECTED NOT DETECTED 06/03/2024 12:00 AM CDT [facility] Comment: Angy group Not detected with the following possible Angy species: Angy albicans and/or Angy tropicalis and/or Angy parapsilosis and/or Angy dubliniensis ANGY GLABRATA NOT DETECTED NOT DETECTED 06/03/2024 12:00 AM CDT [facility] ANGY KRUSEI NOT DETECTED NOT DETECTED 06/03/2024 12:00 AM CDT [facility] Other VAGINAL STRUCTURE / Unknown Non-Phlebotomy Collection / Unknown 06/02/2024 3:50 AM CDT 06/02/2024 3:58 AM CDT us Justine Gutierrez MD MICROBIOLOGY - GENERAL ORDERABLE S Final Result Performing Organization Address City/State/[facility] Co de Phone Number [facility] [address] [place] [address], * (ABNORMAL) CHLAMYDIA & GC DNA PROBE > 12 (06/02/2024 3:23 AM CDT) [facility] CHLAMYDIA DNA NEGATIVE NEGATIVE 06/02/2024 7:31 PM CDT [facility] Comment: Presumed negative for C. trachomatis. A negative result does not preclude C. trachomatis infection because results are dependent on adequate specimen collection, absence of inhibitors, and sufficient DNA to be detected. This test was performed using RADHA 5800 Real Time PCR. GC DNA POSITIVE(A) NEGATIVE 06/02/2024 7:31 PM CDT [facility] Comment: Positive for N. gonorrhoeae. Organism viability [...] MICROBIOLOGY - GENERAL ORDERABLE S Final Result [facility] [address] [facility] [place] [id number], [place] * (ABNORMAL) Urinalysis w/ Reflex (06/02/2024 3:23 AM CDT) SPECIFIC GRAVITY 1.010 1.003 - 1.030 06/02/2024 4:17 AM CDT [facility] URINE PH 7.0 5.0 - 9.0 06/02/2024 4:17 AM CDT [facility] WBC ESTERASE 500 /uL(A) Negative 06/02/2024 4:17 AM CDT [facility] NITRITE Negative Negative 06/02/2024 4:17 AM CDT [facility] PROTEIN, RANDOM URINE 30 mg/dL(A) Negative 06/02/2024 4:17 AM CDT [facility] URINE GLUCOSE, QUAL Negative Negative 06/02/2024 4:17 AM CDT [facility] URINE KETONES Negative Negative 06/02/2024 4:17 AM CDT [facility] UROBILINOGEN Normal Normal mg/dL 06/02/2024 4:17 AM CDT [facility] URINE BLOOD 10 /uL(A) Negative makayla/ul 06/02/2024 4:17 AM CDT [facility] URINALYSIS COLOR Yellow 06/03/19 4:17 AM CDT [facility] URINALYSIS CLARITY Slightly Cloudy 06/02/2024 4:17 AM CDT [facility] WBC (Urine) 51-150(A) Negative, 0-5 /hpf 06/02/2024 4:17 AM CDT [facility] URINE RBC'S 3-5(A) Negative, 0-2 /hpf 06/02/2024 4:17 AM CDT [facility] EPITHELIAL CELLS Moderate amount /lpf 06/02/2024 4:17 AM CDT [facility] BACTERIA, URINE Few(A) Negative /hpf 06/02/2024 4:17 AM CDT [facility] Urine URINE SPECIMEN / Unknown Non-Phlebotomy Collection / Unknown 06/02/2024 3:23 AM CDT 06/02/2024 3:35 AM CDT us Justine Gutierrez MD URINE ORDERABLES Final Result Performing Organization Address City/[facility]/ZIP Co de Phone Number [facility] [address] [place] [address] * Culture, Urine (06/02/2024 3:23 AM CDT) CULTURE RESULTS MIXED GROWTH OF ONE OR MORE DISTAL URETHRAL CONTAMINANTS 06/03/2024 10:21 AM CDT [facility] Urine URINE SPECIMEN / Unknown Non-Phlebotomy Collection / Unknown 06/02/2024 3:23 AM CDT 06/02/2024 3:35 AM CDT Justine Gutierrez MD MICROBIOLOGY - GENERAL ORDERABLE S Final Result Performing Organization Address City/[facility]/ZIP Co de Phone Number [facility] [address] [place] [address], [place] from Last 3 Months Insurance MEDICAID CAPPS Care Teams Learning Technologies Specialist Relationship Specialty Start Date End Date Provider, None [place] PCP - General 07/06/22
== END 2024-07-16 19:50 | disposition left against medical advice (07) ==
LOC: ANHED 21:51
DX: S89.92XA Unspecified injury of left lower leg, initial encounter (principal)
CPT/HCPCS: 99199

== ENCOUNTER 2024-08-25 14:07 | Emergency (ER) | payer OTHER, SELFPAY ==
--- NOTE | ~2024-08-25 | XR_ITS ---
EXAMINATION: XR chest 1V portable 08/25/2024 15:40 INDICATION: Hypertension PROCEDURE: AP portable chest COMPARISON: No prior studies for comparison. FINDINGS: The lungs are clear. The cardiomediastinal silhouette is within normal limits. There are no pleural effusions. There is no pneumothorax suspected. IMPRESSION: 1: NO ACUTE CARDIOPULMONARY DISEASE. Reviewed, dictated and finalized at location A.
--- OUTSIDE RECORDS SUMMARY | 2024-08-25 14:14 | XMS_ITS | Clinical Summary ---
Author Organization [facility] Address [address] [place] [address] Phone Care Team Providers Care Baccarat Dealer Name Role Phone Provider, None Primary Care Provider Unavailabl e Allergies No known active allergies Medications losartan potassium-hydro chlorothiazide (HYZAAR) 100-25 MG Tablet Take 1 Tablet by mouth daily. 30 Tablet 4 Active Additional Information Patient not taking.Reported on 02/07/2024 naloxone HCl (Narcan) 4 MG/0.1ML Liquid 1 [place] by Nasal route as needed for Opioid [...] Type Department Care Team Description 06/07[facility] [address] [place] [address] Irina Alvarado WIRED MUSIC OPERATOR Follow-up (Test results) 06/05/2024 [facility]phone [facility] [address] [place] [address] Irina Alvarado, WIRED MUSIC OPERATOR Follow-up (Test results) 06/04/2024 Telephone [facility] Emergency [address] [place] [address] Irina Alvarado, WIRED MUSIC OPERATOR Follow-up (Test results) 06/03/2024 Telephone [facility] Emergency [address] [place] [address] Kaylie Samano APRN, SUPERVISOR INDUSTRIAL GARMENT ED Follow-up (New prescription) 06/02/2024 3:08 AM CDT - 06/02/2024 4:28 AM CDT Emergency [facility] Emergency [address] [place] [address] Justine Gutierrez MD Dysuria Discharge Disposition: Discharged [...] Comments Hepatitis C Virus (HCV) Screening 1991 Human Papillomavirus (HPV) Immunization (1 - 3-dose series) 05/10/2006 Hepatitis B Immunization (1 of 3 - 19+ 3-dose series) 05/10/2010 HPV/Cotest 05/10/2021 Cervical Cancer Screening (CCS) 04/10/2022 Pap Smear 04/10/2022 04/10/2019 SARS-COV-2 Immunization ( - season) 2023 Influenza Immunization (#1) 2024 03/05/2014 Td Immunization Every 10 Yea [...] AM CDT CHLAMYDIA & GC DNA PROBE ADULT STAT 06/02/2024 3:23 AM CDT from Last 3 Months Results * (ABNORMAL) Molecular, Vaginitis Screen (06/02/2024 3:50 AM CDT) Pathologist [facility] TRICHOMONAS NOT DETECTED NOT DETECTED 06/03/2024 12:00 AM CDT [facility] BACTERIAL VAGINOSIS DETECTED(A) NOT DETECTED 06/03/2024 12:00 AM CDT [facility] ANGY NOT DETECTED NOT DETECTED 06/03/2024 12:00 AM CDT [facility] Comment: Angy group Not detected with the following possible Angy species: Angy albicans and/or Angy tropicalis and/or Angy parapsilosis and/or Angy dubliniensis ANGY GLABRATA NOT DETECTED NOT DETECTED 06/03/2024 12:00 AM CDT [facility] ANGY KRUSEI NOT DETECTED NOT DETECTED 06/03/2024 12:00 AM CDT [facility] Other VAGINAL STRUCTURE / Unknown Non-Phlebotomy Collection / Unknown 06/02/2024 3:50 AM CDT 06/02/2024 3:58 AM CDT us Justine Gutierrez MD MICROBIOLOGY - GENERAL ORDERABLE S Final Result Performing Organization Address City/State/[facility] Co de Phone Number [facility] [address] [place] [address], * (ABNORMAL) CHLAMYDIA & GC DNA PROBE > 12 (06/02/2024 3:23 AM CDT) Pathologist [facility] CHLAMYDIA DNA NEGATIVE NEGATIVE 06/02/2024 7:31 PM CDT [facility] Comment: Presumed negative for C. trachomatis. A negative result does not preclude C. trachomatis infection because results are dependent on adequate specimen collection, absence of inhibitors, and sufficient DNA to be detected. This test was performed using RADHA 5800 Real Time PCR. GC DNA POSITIVE(A) NEGATIVE 06/02/2024 7:31 PM CDT [facility] Comment: Positive for N. gonorrhoeae. [...] MICROBIOLOGY - GENERAL ORDERABLE S Final Result [facility] [address] [place] [address], [place] * (ABNORMAL) Urinalysis w/ Reflex (06/02/2024 3:23 AM CDT) SPECIFIC GRAVITY 1.010 1.003 - 1.030 06/02/2024 4:17 AM CDT [facility] URINE PH 7.0 5.0 - 9.0 06/02/2024 4:17 AM CDT [facility] WBC ESTERASE 500 /uL(A) Negative 06/02/2024 4:17 AM CDT [facility] NITRITE Negative Negative 06/02/2024 4:17 AM CDT [facility] PROTEIN, RANDOM URINE 30 mg/dL(A) Negative 06/02/2024 4:17 AM CDT [facility] URINE GLUCOSE, QUAL Negative Negative 06/02/2024 4:17 AM CDT [facility] URINE KETONES Negative Negative 06/02/2024 4:17 AM CDT [facility] UROBILINOGEN Normal Normal mg/dL 06/02/2024 4:17 AM CDT [facility] URINE BLOOD 10 /uL(A) Negative makayla/ul 06/02/2024 4:17 AM CDT [facility] URINALYSIS COLOR Yellow 06/03/19 4:17 AM CDT [facility] URINALYSIS CLARITY Slightly Cloudy 06/02/2024 4:17 AM CDT [facility] WBC (Urine) 51-150(A) Negative, 0-5 /hpf 06/02/2024 4:17 AM CDT [facility] URINE RBC'S 3-5(A) Negative, 0-2 /hpf 06/02/2024 4:17 AM CDT [facility] EPITHELIAL CELLS Moderate amount /lpf 06/02/2024 4:17 AM CDT [facility] BACTERIA, URINE Few(A) Negative /hpf 06/02/2024 4:17 AM CDT [facility] Urine URINE SPECIMEN / Unknown Non-Phlebotomy Collection / Unknown 06/02/2024 3:23 AM CDT 06/02/2024 3:35 AM CDT us Justine Gutierrez MD URINE ORDERABLES Final Result [facility] [address] [place] [address] * Culture, Urine (06/02/2024 3:23 AM CDT) CULTURE RESULTS MIXED GROWTH OF ONE OR MORE DISTAL URETHRAL CONTAMINANTS 06/03/2024 10:21 AM CDT [facility] Urine URINE SPECIMEN / Unknown Non-Phlebotomy Collection / Unknown 06/02/2024 3:23 AM CDT 06/02/2024 3:35 AM CDT us Justine Gutierrez MD MICROBIOLOGY - GENERAL ORDERABLE S Final Result Performing Organization Address City/[facility]/ZIP Co de Phone Number [facility] [address] [place] [address], [place] from Last 3 Months Insurance MEDICAID CAPPS Care Teams Baccarat Dealer Relationship Specialty Start Date End Date Provider, None [place] PCP - General 07/06/22
[2024-08-25 14:19] VITALS: BP 202/134; PULSE 80; RESP 16; TEMP 36.4; O2SAT 99
--- NOTE | 2024-08-25 15:11 | ED_ITS ---
HPI - General Adult General Chief complaint: Recheck/Abnormal Lab/Rx Stated complaint: high blood pressure; R knee swelling Time Seen by Provider: 08/25/24 15:11 Source: patient Mode of arrival: ambulatory Limitations: no limitations History of Present Illness HPI narrative: PATIENT WENT TO SEE HER FAMILY PHYSICIAN TODAY BECAUSE OF RIGHT KNEE PAIN AFTER A FALL 4 WEEKS AGO WITH NEGATIVE X-RAY AT THAT TIME. ALSO RUN OUT OF BLOOD PRESSURE MEDICATION AND HER BLOOD PRESSURE IS HIGH. PATIENT DENIES ANY FEVER, CHILLS, NAUSEA, VOMITING, HEADACHE, CHEST PAIN, OR SHORTNESS OF BREATH PATIENT USED TO BE ON LOSARTAN 25 MG ONCE A DAY, HAD A PRESCRIPTION OF 50 MG ONCE A DAY BY HER FAMILY PHYSICIAN WHO DID NOT GET YET. Related Data Allergies Allergy/AdvReac Type Severity Reaction Status Date / Time No Known Allergies Allergy Verified 08/25/24 14:27 Review of Systems 2 Review of Systems: All systems reviewed & are unremarkable except as noted in HPI and below PMFSH Past Medical History Medical History Healthy female adult Exam 2 Narrative: GENERAL APPEARANCE: WELL-DEVELOPED, WELL-NOURISHED SKIN: NORMAL COLOR 1+ EDEMA LOWER EXTREMITY BILATERALLY HEAD: NORMOCEPHALIC, NONTRAUMATIC EYES: CLEAR CONJUNCTIVA ENT: OROPHARYNX NORMAL, EARS NORMAL, NOSE NORMAL NECK: SUPPLE, NONTENDER CHEST AND RESPIRATORY: AIRWAY PATENT, NO RESPIRATORY DISTRESS, NO ACCESSORY MUSCLE USE HEART: REGULAR RATE/RHYTHM ABDOMEN: SOFT, NONTENDER, NO ORGANOMEGALY, QUIET BOWEL SOUNDS VASCULAR: NORMAL PERIPHERAL PULSES, NORMAL CAPILLARY REFILL. MUSCULOSKELETAL: NORMAL RANGE OF MOTION, NONTENDER BACK NEUROLOGIC: ALERT AND ORIENTED ?3, WILDLIFE REFUGE SPECIALIST IS NORMAL TESTED, NO GROSS MOTOR DEFICIT Course Vital Signs Vital signs: Vital Signs Temperature 36.4 C 08/25/24 14:19 Pulse Rate 80 08/25/24 14:19 Respiratory Rate 16 08/25/24 14:19 Blood Pressure 202/134 H 08/25/24 14:19 Pulse Oximetry 99 08/25/24 14:19 Oxygen Delivery Room Air 08/25/24 14:19 Temperature 36.4 C 08/25/24 14:19 Pulse Rate 80 08/25/24 17:40 Respiratory Rate 14 08/25/24 17:40 Blood Pressure 159/100 H 08/25/24 17:40 Pulse Oximetry 99 08/25/24 17:40 Oxygen Delivery Room Air 08/25/24 15:13 Medical Decision Making [facility] Narrative Medical decision making narrative: PATIENT PRESENTS WITH ELEVATED BLOOD PRESSURE, ASYMPTOMATIC, HISTORY OF RIGHT KNEE INJURY 1 MONTH AGO VITAL SIGNS SHOWING BLOOD PRESSURE 202/134, PATIENT IS ASYMPTOMATIC. PHYSICAL EXAMINATION CONSISTENT WITH DIFFUSE TENDERNESS OF THE RIGHT KNEE AND SLIGHT LIMITED RANGE OF MOTION DIFFERENTIAL DIAGNOSIS INCLUDE UNCONTROLLED HYPERTENSION, RIGHT KNEE SPRAIN, STRAIN OR INTERNAL INJURY, BLOOD WORKUP TODAY INCLUDES CBC, CMP, TROPONIN, SHOWED PRO BMP 885 OTHERWISE WITHIN NORMAL LIMIT URINALYSIS 1+ LEUKOCYTE ESTRACE OTHERWISE WITHIN NORMAL LIMIT CHEST X-RAY SHOWED NO ACUTE ABNORMALITY EKG ON ARRIVAL SHOWED NORMAL SINUS RHYTHM AT 87 BEATS PER MINUTE, LEFT ATRIAL ENLARGEMENT, LEFT VENTRICULAR HYPERTROPHY, NO PREVIOUS EKG AVAILABLE FOR COMPARISON WORKUP TODAY SHOWED THAT THE PATIENT HAVE ELEVATED BLOOD PRESSURE, HIGH LIKELY CONGESTIVE HEART FAILURE WHICH IS ASYMPTOMATIC AT THIS TIME. MY PLAN TO DISCHARGE PATIENT ON LOSARTAN/HYDROCHLOROTHIAZIDE INSTEAD OF LOSARTAN ONLY PATIENT SCHEDULED TO SEE A TAVERN OPERATOR NEXT WEEK. PATIENT RECEIVED 20 MG OF LASIX P.O. PRIOR TO DISCHARGE. PATIENT FAMILY PHYSICIAN, DR. DICKINSON WAS NOTIFIED ABOUT THE NEW CHANGES. THE PT WAS DISCHARGED TO HOME.THE PT,S CONDITION UPON DISCHARGE WAS FAIR,EDUCATION WAS PROVIDED TO THE PT IN REFERENCE TO THE FINAL IMPRESSION,DISCHARGE STUDY RESULTS,TREATMENT,PROGNOSIS AND NEED FOR FOLLOW UP . Differential Diagnosis Differential Diagnosis: ABOVE Vital Signs Vital Signs: Vital Signs Temperature 36.4 C 08/25/24 14:19 Pulse Rate 80 08/25/24 14:19 Respiratory Rate 16 08/25/24 14:19 Blood Pressure 202/134 H 08/25/24 14:19 Pulse Oximetry 99 08/25/24 14:19 Oxygen Delivery Room Air 08/25/24 14:19 Temperature 36.4 C 08/25/24 14:19 Pulse Rate 80 08/25/24 17:40 Respiratory Rate 14 08/25/24 17:40 Blood Pressure 159/100 H 08/25/24 17:40 Pulse Oximetry 99 08/25/24 17:40 Oxygen Delivery Room Air 08/25/24 15:13 Lab Data 08/25/24 15:35 08/25/24 15:35 Labs: Lab Results 08/25/24 08/25/24 Range/Units 15:34 15:35 WBC 8.2 (4.5-10.0) K/mm3 RBC 4.64 (4.2-5.4) M/mm3 Hgb 13.1 (12.0-15.0) g/dL Hct 40.6 (37.0-47.0) % MCV 87.5 (80-100) fl MCH 28.2 (26-34) pg MCHC 32.3 (32-36) g/dl RDW 13.2 (11.5-14.5) % Plt Count 377 H (150-375) k/mm3 MPV 9.6 (7.4-10.4) fl Immature Gran % (Auto) 0.2 (0-0.5) % Neut % (Auto) 67.6 (45.5-73.1) % Lymph % (Auto) 21.3 (18.3-44.2) % Phelps % (Auto) 7.5 (2.6-8.5) % Eos % (Auto) 2.5 (0-4.4) % Baso % (Auto) 0.9 (0.2-1.2) % Lymph # (Auto) 1.74 (0.9-3.2) K/mm3 P[place]ps # (Auto) 0.6 (0.1-0.6) K/mm3 Eos # (Auto) 0.2 (0-0.3) K/mm3 Baso # (Auto) 0.1 (0.0-0.1) K/mm3 Abs Immat Gran (auto) 0.02 (0.00-0.031) K/mm3 Absolute Neuts (auto) 5.5 (1.3-6.7) K/mm3 Absolute Nucleated RBC 0.000 (0.0-0.012) K/mm3 Nucleated RBC % 0.0 (0.0-0.2) % PT 13.0 (11.1-14.7) Seconds INR 1.0 APTT 29.9 (22.3-36.8) Seconds Sodium 137 (137-145) mmol/L Potassium 3.9 (3.4-5.0) mmol/L Chloride 101 (98-107) mmol/L Carbon Dioxide 25 (22-30) mmol/L Anion Gap 11 (4-12) mmol/L BUN 11 (7-17) mg/dL Creatinine 0.69 L (0.7-1.0) mg/dL Estim Creat Clear Calc 102 ml/min Estimated GFR > 60 (59 - ) Glucose 104 (65-110) mg/dL Calcium 9.2 (8.4-10.2) mg/dL Total Bilirubin 1.1 (0.2-1.3) mg/dL AST 25 (14-36) U/L ALT 16 (6-35) U/L Alkaline Phosphatase 66 (38-126) U/L Troponin I < 0.012 (0.000-0.034) ng/mL NT-Pro-B Natriuret Pep 885 H (19.9-100) pg/mL Total Protein 8.1 (6.3-8.2) g/dL Albumin 4.5 (3.5-5.1) g/dL Urine Color Yellow (Yellow) Urine Appearance Clear (Clear) Urine pH 6.0 (5.0-9.0) Ur Specific [place] 1.018 (1.001-1.035) Urine Protein Negative (Negative) mg/dL Urine Glucose (UA) Negative (Negative) mg/dL Urine Ketones Negative (Negative) mg/dL Ur Blood (Man) Negative (Negative) Urine Nitrate Negative (Negative) Urine Bilirubin Negative (Negative) Urine Urobilinogen 0.2 (<2.0) mg/dL Leukocyte Esterase Rfl 1+ H (Negative) ESTEBAN/UL Urine RBC 3-5 H (0-2) /hpf Urine WBC 6-10 H (0-3) /hpf Ur Squamous Epith Cells Occasional (Few) /hpf Urine Bacteria None seen /hpf Urine Casts 0-2 POC Urine HCG, Qual Negative (Negative) Imaging Data Radiologist's impression: Impressions Chest X-Ray 08/25/24 15:43 IMPRESSION: 1: NO ACUTE CARDIOPULMONARY DISEASE. ECG Data EKG #1: Attestation: I personally reviewed and interpreted this ECG as follows: ECG completion date: 08/25/24 Interpretation: NORMAL SINUS RHYTHM AT 87 BEATS PER MINUTE, LEFT ATRIAL ENLARGEMENT, LEFT VENTRICULAR HYPERTROPHY, NO PREVIOUS EKG AVAILABLE FOR COMPARISON Critical Care Time Critical Care Time Critical Care Time: No Discharge Plan Discharge Clinical Impression: Hypertension, Acute pain of right knee Patient Disposition: Home Condition: Stable Instructions: Chronic Hypertension (ED), Knee Pain (ED) Additional Instructions: RETURN IF SYMPTOMS ARE WORSENING , CALL YOUR FAMILY PHYSICIAN FOR APPOINTMENT, TAKE TYLENOL NEEDED FOR ACHES AND PAIN, CONTINUE HOME MEDICATIONS. KEEP YOUR SCHEDULE WITH YOUR TAVERN OPERATOR NEXT WEEK Patient Language: Spanish Prescriptions: New losartan-hydrochlorothiazide [Hyzaar] 50-12.5 mg tablet 1 tablet PO DAILY Qty: 30 0RF No Action cyclobenzaprine 10 mg tablet 10 mg PO TID PRN (Reason: muscle spasm) Qty: 20 0RF naproxen 375 mg tablet 375 mg PO BID Qty: 14 0RF Follow-up/Referrals: Levi Moura MD [Primary Care Provider] - Prince Nguyen MD [Physician] - 08/26/24
--- NOTE | 2024-08-25 15:12 | ECG_ITS ---
Test Date: 2024-08-25 15:28:36 Measurements Intervals [place] Rate: 87 P: 44 [place]: 165 QRS: -5 QRSD: 78 T: 131 QT: 352 QTc: 425 Interpretive Statements SINUS RHYTHM POSSIBLE LEFT ATRIAL ENLARGEMENT [-0.1mV P-WAVE IN V1/V2] NONSPECIFIC T-WAVE ABNORMALITY ABNORMAL ECG No previous ECG available for comparison Electronically Signed On 08-26-2024 07:40:06 CDT by John Graves M.D.
[2024-08-25 15:13] VITALS: BP 191/124; PULSE 86; RESP 14; O2SAT 99
[2024-08-25 15:20] VITALS: BP 191/124; PULSE 87; RESP 14; O2SAT 99
[2024-08-25 15:36] LABS: BEDSIDEPREGUCG Negative (Negative)
[2024-08-25 15:45] LABS: Hematocrit 40.6 % (37.0-47.0); Hemoglobin 13.1 g/dL (12.0-15.0); Immature Granulocyte Percent A 0.2 % (0-0.5); Lymphocytes Absolute Auto 1.74 K/mm3 (0.9-3.2); Mean Corpuscular HGB Conc 32.3 g/dl (32-36); Mean Corpuscular Hemoglobin 28.2 pg (26-34); Mean Corpuscular Volume 87.5 fl (80-100); Nucleated Red Blood Cells Absolute Auto 0.000 K/mm3 (0.0-0.012); Nucleated Red Blood Cells Perc 0.0 % (0.0-0.2); Platelet Count Result 377 k/mm3 (150-375); Red Blood Count 4.64 M/mm3 (4.2-5.4); White Blood Count 8.2 K/mm3 (4.5-10.0)
--- OUTSIDE RECORDS SUMMARY | 2024-08-25 15:49 | XMS_ITS | Clinical Summary ---
Author Organization [facility] Address [address] [place] [address] Phone Care Team Providers Care A And P Technician Name Role Phone Provider, None Primary Care Provider Unavailabl e Allergies No known active allergies Medications losartan potassium-hydro chlorothiazide (HYZAAR) 100-25 MG Tablet Take 1 Tablet by mouth daily. 30 Tablet 4 Active Additional Information Patient not taking.Reported on 02/07/2024 naloxone HCl (Narcan) 4 MG/0.1ML Liquid 1 [place] by Nasal route as needed for Opioid [...] Type Department Care Team Description [facility]/07[facility]24 [facility] [address] [place] [address] Irina Alvarado POULTRY PINNER Follow-up (Test results) 06/05/2024 [facility] [address] [place] [address] Irina Alvarado, POULTRY PINNER Follow-up (Test results) 06/04/2024 Telephone [facility] [address] [place] [address] Irina Alvarado, POULTRY PINNER Follow-up (Test results) 06/03/2024 Telephone [facility] [address] [place] [address] Kaylie Samano APRN, FIELD MANAGER ED Follow-up (New prescription) 06/02/2024 3:08 AM CDT - 06/02/2024 4:28 AM CDT Emergency [facility] [address] [place] [address] Justine Gutierrez MD Dysuria Discharge Disposition: Discharged [...] Vaginitis Screen (06/02/2024 3:50 AM CDT) Pathologist [facility] TRICHOMONAS NOT DETECTED NOT DETECTED 06/03/2024 12:00 AM CDT [facility] BACTERIAL VAGINOSIS DETECTED(A) NOT DETECTED 06/03/2024 12:00 AM CDT [facility] ANGY NOT DETECTED NOT DETECTED 06/03/2024 12:00 AM CDT [facility] Comment: Angy group Not detected with the following possible Angy species: Angy albicans and/or Angy tropicalis and/or Angy parapsilosis and/or Angy dubliniensis ANGY GLABRATA NOT DETECTED NOT DETECTED 06/03/2024 12:00 AM CDT [facility] ANGY KRUSEI NOT DETECTED NOT DETECTED 06/03/2024 12:00 AM CDT [facility] Other VAGINAL STRUCTURE / Unknown Non-Phlebotomy Collection / Unknown 06/02/2024 3:50 AM CDT 06/02/2024 3:58 AM CDT us Justine Gutierrez MD MICROBIOLOGY - GENERAL ORDERABLE S Final Result Performing Organization Address City/State/[facility] Co de Phone Number [facility] [address] [place] [address], * (ABNORMAL) CHLAMYDIA & GC DNA PROBE > 12 (06/02/2024 3:23 AM CDT) Pathologist [facility] CHLAMYDIA DNA NEGATIVE NEGATIVE 06/02/2024 7:31 PM CDT [facility] Comment: Presumed negative for C. trachomatis. A negative result does not preclude C. trachomatis infection because results are dependent on adequate specimen collection, absence of inhibitors, and sufficient DNA to be detected. This test was performed using RADHA 5800 Real Time PCR. GC DNA POSITIVE(A) NEGATIVE 06/02/2024 7:31 PM CDT [facility] Comment: Positive for N. gonorrhoeae. [...] MICROBIOLOGY - GENERAL ORDERABLE S Final Result [facility] [address] [place] [address], [place] * (ABNORMAL) Urinalysis w/ Reflex (06/02/2024 3:23 AM CDT) SPECIFIC GRAVITY 1.010 1.003 - 1.030 06/02/2024 4:17 AM CD[facility] UR[facility] PH 7.0 5.0 - 9.0 06/02/2024 4:17 AM CDT [facility] WBC ESTERASE 500 /uL(A) Negative 06/02/2024 4:17 AM CDT [facility] NITRITE Negative Negative 06/02/2024 4:17 AM CDT [facility] PROTEIN, RANDOM URINE 30 mg/dL(A) Negative 06/02/2024 4:17 AM CDT [facility] URINE GLUCOSE, QUAL Negative Negative 06/02/2024 4:17 AM CDT [facility] URINE KETONES Negative Negative 06/02/2024 4:17 AM CDT [facility] UROBILINOGEN Normal Normal mg/dL 06/02/2024 4:17 AM CDT [facility] URINE BLOOD 10 /uL(A) Negative makayla/ul 06/02/2024 4:17 AM CDT [facility] URINALYSIS COLOR Yellow 06/03/19 4:17 AM CDT [facility] URINALYSIS CLARITY Slightly Cloudy 06/02/2024 4:17 AM CDT [facility] WBC (Urine) 51-150(A) Negative, 0-5 /hpf 06/02/2024 4:17 AM CDT [facility] URINE RBC'S 3-5(A) Negative, 0-2 /hpf 06/02/2024 4:17 AM CDT [facility] EPITHELIAL CELLS Moderate amount /lpf 06/02/2024 4:17 AM CDT [facility] BACTERIA, URINE Few(A) Negative /hpf 06/02/2024 4:17 AM CDT [facility] Urine URINE SPECIMEN / Unknown Non-Phlebotomy Collection / Unknown 06/02/2024 3:23 AM CDT 06/02/2024 3:35 AM CDT us Justine Gutierrez MD URINE ORDERABLES Final Result [facility] [address] [place] [address] * Culture, Urine (06/02/2024 3:23 AM CDT) CULTURE RESULTS MIXED GROWTH OF ONE OR MORE DISTAL URETHRAL CONTAMINANTS 06/03/2024 10:21 AM CDT [facility] Urine URINE SPECIMEN / Unknown Non-Phlebotomy Collection / Unknown 06/02/2024 3:23 AM CDT 06/02/2024 3:35 AM CDT us Justine Gutierrez MD MICROBIOLOGY - GENERAL ORDERABLE S Final Result Performing Organization Address City/[facility]/ZIP Co de Phone Number [facility] [address] [place] [address], [place] from Last 3 Months Insurance MEDICAID CAPPS Care Teams A And P Technician Relationship Specialty Start Date End Date Provider, None [place] PCP - General 07/06/22
[2024-08-25 15:54] LABS: Add Urine Microscopic? YES; Appearance Urine Clear (Clear); Glucose Urine UA Negative (Negative); Leukocyte Esterase Ur 1+ LEU/UL (Negative); Nitrate Urine Negative (Negative); Non Pathogenic Casts 0-2; Specific Grav Ur 1.018 (1.001-1.035)
[2024-08-25 16:00] LABS: Alanine Aminotransferase 16 U/L (6-35); Albumin Level 4.5 g/dL (3.5-5.1); Alkaline Phosphatase 66 U/L (38-126); Anion Gap 11 mmol/L (4-12); Aspartate Amino Transferase 25 U/L (14-36); Bilirubin,Total 1.1 mg/dL (0.2-1.3); Blood Urea Nitrogen 11 mg/dL (7-17); Calcium 9.2 mg/dL (8.4-10.2); Carbon Dioxide 25 mmol/L (22-30); Chloride 101 mmol/L (98-107); Estimated CRCL calculation 102 ml/min; Estimated Glomerular Filt Rate > 60; Glucose 104 mg/dL (65-110); Potassium 3.9 mmol/L (3.4-5.0); Sodium 137 mmol/L (137-145); Total Protein 8.1 g/dL (6.3-8.2)
[2024-08-25 16:08] LABS: INR 1.0; Prothrombin Time 13.0 Seconds (11.1-14.7)
[2024-08-25 16:09] LABS: Partial Thromboplastin Time 29.9 Seconds (22.3-36.8)
[2024-08-25 16:10] LABS: NT Pro B Type Natriuretic Pept 885 pg/mL (19.9-100); Troponin I < 0.012 ng/mL (0.000-0.034)
[2024-08-25 17:02] VITALS: BP 159/106; PULSE 70; RESP 14; O2SAT 99
[2024-08-25 17:40] VITALS: BP 159/100; PULSE 80; RESP 14; O2SAT 99
[2024-08-25] MEDS: FUROSEMIDE 20 MG TABLET PO (17:44)
== END 2024-08-25 17:58 | disposition home or self-care (01) ==
PROVIDERS: Emergency Provider Emergency Medicine; PCP Emergency Medicine
DX: M25.561 Pain in right knee (principal); I10 Essential (primary) hypertension; R94.31 Abnormal electrocardiogram [ECG] [EKG]
CPT/HCPCS: 36415; 71045; 80053; 81001; 81025; 83880; 84484; 85025; 85610; 85730; 87086; 93005; 96374; 99284; A9270